=== PATIENT | female | born 1995 | race Caucasian/White ===

== ENCOUNTER 2018-04-02 23:02 | Emergency (ER) | payer OTHER ==
[2018-04-02] MEDS: METHYLPREDNISOLONE 125 MG INJ IV (23:20)
[2018-04-02] MEDS: DIPHENHYDRAMINE 50 MG INJ IV (23:20)
[2018-04-02] MEDS: FAMOTIDINE 20 MG INJ IV (23:20)
[2018-04-02] MEDS: EPINEPHrine 1 MG INJ IM (23:20)
[2018-04-03 00:03] LABS: ADD UMIC NO; UR ASCORBIC ACID 40 mg/dL (NEGATIVE); UR BILIRUBIN (Dip) NEGATIVE (NEGATIVE); UR BLOOD (Dip) NEGATIVE (NEGATIVE); UR CLARITY CLEAR (CLEAR); UR COLOR YELLOW (YELLOW); UR GLUCOSE (Dip) NEGATIVE (NEGATIVE); UR KETONES (Dip) TRACE mg/dL (NEGATIVE); UR LEUKOCYTE ESTERASE (Dip) NEGATIVE Leu/ul (NEGATIVE); UR NITRITE (Dip) NEGATIVE (NEGATIVE); UR SPECIFIC GRAVITY (Dip) 1.024 (1.003-1.030); UR TOTAL PROTEIN (Dip) NEGATIVE (NEGATIVE); UR UROBILINOGEN (Dip) NEGATIVE (NEGATIVE)
== END 2018-04-03 02:24 | disposition home or self-care (01) ==
LOC: E/R 23:02
DX: T78.3XXA Angioneurotic edema, initial encounter (principal); R07.9 Chest pain, unspecified
CPT/HCPCS: 71045; 81003; 81025; 96372; 96374; 96375; 99284-25